=== PATIENT | male | born 1995 | race Hispanic/Latino ===

== ENCOUNTER 2019-02-20 19:45 | Emergency (ER) | payer OTHER ==
[~2019-02-20] VITALS: Ht 167.6 cm; Wt 95.3 kg
--- OUTSIDE RECORDS SUMMARY | 2019-02-20 19:49 | XMS REPORT | Clinical Summary ---
Author Author [place] [place] [facility] Address Unknown Phone Unavailable Care Team Providers Care Delicatessen Department Manager Name Role Phone Nery Lawler MD PCP Allergies Comments Active Allergy Reactions Severity Noted Date Brompheniramine-Pseudoeph Rash Low 05/07/2016 -Dm Medications No known medications Active Problems Problem Noted Date Testicular cancer 05/07/2016 Encounters Care Team Description Date Type Specialty Lyubov Gunter MA 09/20/2018 Telephone Urology Elizabeth Vincent MD Malignant neoplasm of testis, unspecified laterality, unspecified whether descended or undescended (HCC) (Primary Dx) 09/18/2018 Office Visit Urology Elizabeth Vincent MD History of primary testicular cancer 09/15/2018 Hospital Radiology Encounter Elizabeth Vincent MD History of primary testicular cancer 09/15/2018 Hospital Radiology Encounter Elizabeth Vincent MD History of primary testicular cancer (Primary Dx) 04/17/2018 Office Visit Urology after 02/19/2018 Family History Medical History Relation Name Comments No Known Problems Father No Known Problems Mother No Known Problems Sister Relation Name Status Comments Father Alive Mother Alive Sister Alive Social History Date Tobacco Use Types Packs/Day Years Used Never Smoker Smokeless Tobacco: Never Used Alcohol Use Drinks/Week oz/Week Comments No Sex Assigned at Date Recorded Not on file Industry Job Start Date Occupation Not on file Not on file Not on file Travel End Travel History Travel Start No recent travel history available. Last Filed Vital Signs Time Taken Vital Sign Reading - Blood Pressure - - Pulse - - Temperature - - Respiratory Rate - - Oxygen Saturation - - Inhaled Oxygen - Concentration 09/15/2018 3:15 PM [employer] Weight 93 kg (205 lb) 09/15/2018 3:15 PM [employer] Height 167.6 cm (5' 6") 09/15/2018 3:15 PM [employer] Body Mass Index 33.09 Plan of Treatment Care Team Description Date Type Specialty Elizabeth Vincent MD [address] [facility] [address] [place] [address] 09/20/2019 Office Visit Urology Health Maintenance Due Date Last Done Comments INFLUENZA VACCINE 05/03/2019 Procedures Comments Procedure Name Priority Date/Time Associated Diagnosis HCG QUANTITATIVE, SERUM Routine 09/18/2018 Malignant neoplasm of 3:36 PM [employer] testis, unspecified laterality, unspecified whether descended or undescended (HCC) ALPHA FETOPROTEIN Routine 09/18/2018 Malignant neoplasm of 3:36 PM [employer] testis, unspecified laterality, unspecified whether descended or undescended (HCC) LDH Routine 09/18/2018 Malignant neoplasm of 3:36 PM [employer] testis, unspecified laterality, unspecified whether descended or undescended (HCC) CT ABDOMEN PELVIS W Routine 09/15/2018 History of primary CONTRAST 4:26 PM [employer] testicular cancer XR CHEST 2 VW Routine 09/15/2018 History of primary 2:01 PM [employer] testicular cancer HCG QUANTITATIVE, SERUM Routine 04/17/2018 History of primary 10:12 AM CDT testicular cancer ALPHA FETOPROTEIN Routine 04/17/2018 History of primary 10:12 AM CDT testicular cancer LDH Routine 04/17/2018 History of primary 9:57 AM CDT testicular cancer POC URINALYSIS DIPSTICK Routine 04/17/2018 History of primary 8:31 AM CDT testicular cancer after 02/19/2018 Results * Alpha fetoprotein (09/18/2018 3:36 PM FRAMING MECH[employer]IC) Only the most recent of 2 results within the time period is included. Alpha 4.2Comment: Iron ECLIA 0.0 - 8.3 ng/mL [facility] fetoprotein methodology Specimen Blood Narrative Performed At Performed at:[address] [place] [address] [facility] [address] [place], [id number] Thread Grinder Tool: Saul Padilla MD, Phone:[phone] Performing Organization Address [facility] Phone Number [facility] * hCG quantitative, serum (09/18/2018 3:36 PM FRAMING MECHANIC) Only the most recent of 2 results within the time period is included. hCG <1Comment: Iron ECLIA 0 - 3 mIU/mL [facility] quantitative, methodology serum Specimen Blood Narrative Performed At Performed at:01 - [facility] [address] [place], [place] [id number] [employer] Grinder Tool: Saul Padilla MD, Phone:[phone] Performing Organization Address [facility] Phone Number [facility] * LDH (09/18/2018 3:36 PM FRAMING MECHANIC) Only the most recent of 2 results within the time period is included. LDH 205 121 - 224 IU/L [facility] Specimen Blood Narrative Performed At Performed at:01 - [facility] [place] [facility] [address] [place], [place] [id number] [employer] Grinder Tool: Saul Padilla MD, Phone:[phone] Performing Organization Address [facility] Phone Number [facility] * CT Abdomen Pelvis W Contrast (09/15/2018 4:26 PM FRAMING MECHANIC) Specimen Narrative Performed At EXAMINATION:CT ABDOMEN PELVIS W CONTRAST [facility] CLINICAL HISTORY:Z85.47 Personal history of malignant neoplasm of testis, history of testicular cancer TECHNIQUE: Multiple axial CT images of the abdomen and pelvis are obtained with the use of intravenous contrast. Coronal and sagittal 3-D reconstructions are obtained. CT scans are performed using radiation dose reduction techniques.Technical factors are evaluated and adjusted to ensure appropriate moderation of exposure.Automated dose management technology is applied to adjust radiation exposure while achieving a diagnostic quality image. COMPARISON:October 2017 FINDINGS: Visualized lower lung zones are clear. The gallbladder does not have any wall thickening. There is no pericholecystic fluid. The CT appearance of the liver, spleen, adrenal glands and pancreas is unremarkable. The abdominal aorta has no aneurysmal dilatation. There is no retroperitoneal adenopathy. The kidneys do not have any solid renal mass or hydronephrosis. CT Pelvis: There is no evidence of any pneumoperitoneum. There is no retroperitoneal adenopathy identified. There are nonspecific fat filled nodes seen within the inguinal region. The largest node measures 1.6 cm. The stomach does not demonstrate any wall thickening. There is no bowel obstruction nor any dilated loops of bowel. The appendix is unremarkable. The colon has no focal inflammatory change. Small bowel is not dilated. The bladder is unremarkable. There is no evidence of any inguinal hernia. IMPRESSION: 1. Comparison is made to a prior study from October 2017. 2. There is no evidence of any metastatic disease. 3. There is no retroperitoneal adenopathy present. 4. No significant interval change since the prior study. [facility]-[id number] Procedure Note Interface, Radiology Results Incoming - 09/15/2018 4:43 PM [employer]AMING MECHANIC EXAMINATION: CT ABDOMEN PELVIS W CONTRAST CLINICAL HISTORY: Z85.47 Personal history of malignant neoplasm of testis, history of testicular cancer TECHNIQUE: Multiple axial CT images of the abdomen and pelvis are obtained with the use of intravenous contrast. Coronal and sagittal 3-D reconstructions are obtained. CT scans are performed using radiation dose reduction techniques. Technical factors are evaluated and adjusted to ensure appropriate moderation of exposure. Automated dose management technology is applied to adjust radiation exposure while achieving a diagnostic quality image. COMPARISON: October 2017 FINDINGS: Visualized lower lung zones are clear. The gallbladder does not have any wall thickening. There is no pericholecystic fluid. The CT appearance of the liver, spleen, adrenal glands and pancreas is unremarkable. The abdominal aorta has no aneurysmal dilatation. There is no retroperitoneal adenopathy. The kidneys do not have any solid renal mass or hydronephrosis. CT Pelvis: There is no evidence of any pneumoperitoneum. There is no retroperitoneal adenopathy identified. There are nonspecific fat filled nodes seen within the inguinal region. The largest node measures 1.6 cm. The stomach does not demonstrate any wall thickening. There is no bowel obstruction nor any dilated loops of bowel. The appendix is unremarkable. The colon has no focal inflammatory change. Small bowel is not dilated. The bladder is unremarkable. There is no evidence of any inguinal hernia. IMPRESSION: 1. Comparison is made to a prior study from October 2017. 2. There is no evidence of any metastatic disease. 3. There is no retroperitoneal adenopathy present. 4. No significant interval change since the prior study. [facility]-[id number] Performing Organization Address City/State/Zipcode Phone Number [facility] [address] [place] [address] * XR Chest 2 Vw (09/15/2018 2:01 PM FRAMING MECHANIC) Specimen Narrative Performed At EXAMINATION:XR CHEST 2 VW [facility] CLINICAL HISTORY:Z85.47 Personal history of malignant neoplasm of testis, history of testicular cancer XR CHEST 2 VWimages are submitted COMPARISON:10/10/2017 FINDINGS: The cardiac silhouette is normal in size. The pulmonary vasculature is within normal limits. The lung zones are clear. There is no pleural effusion or pneumothorax. There are no lung nodules identified. IMPRESSION: 1. There is no acute cardiopulmonary disease. 2. There are no lung nodules identified. [facility]-[id number] Procedure Note Hm Interface, Radiology Results Incoming - 09/15/2018 2:13 PM FRAMING MECHANIC EXAMINATION: XR CHEST 2 VW CLINICAL HISTORY: Z85.47 Personal history of malignant neoplasm of testis, history of testicular cancer XR CHEST 2 VW images are submitted COMPARISON: 10/10/2017 FINDINGS: The cardiac silhouette is normal in size. The pulmonary vasculature is within normal limits. The lung zones are clear. There is no pleural effusion or pneumothorax. There are no lung nodules identified. IMPRESSION: 1. There is no acute cardiopulmonary disease. 2. There are no lung nodules identified. [facility]-[id number] Performing Organization Address City/State/Zipcode Phone Number [facility] [address] [place] [address] * POC urinalysis dipstick (04/17/2018 8:31 AM CDT) Color urine, Yellow POC Clarity urine, Clear POC Glucose urine, Negative Negative POC Bilirubin Negative Negative urine, POC Ketones urine, Negative Negative POC Specific 1.025 1.005 - 1.030 gravity urine, POC Blood urine, Negative Negative POC pH urine, POC 5.5 5.0, 5.5, 6.0, 6.5, 7.0, 7.5, 8.0, 8.5 Protein urine, Negative Negative POC Urobilinogen <2.0 <2.0 urine, POC Nitrite urine, Negative Negative POC Leukocyte Negative Negative esterase urine, POC Specimen Urine after 02/19/2018 Insurance Type Payer Benefit Subscriber ID Effective Phone Address Plan / Dates Group HMO/PPO [facility] xxxxxxxxx [id number] THCARE resent CHOICE/CHO ICE + Advance Directives Patient has advance care planning documents on file. For more information, dandre spivey contact: Junaid Jesus [address] [place] [address]
--- OUTSIDE RECORDS SUMMARY | 2019-02-20 19:49 | XMS REPORT ---
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 Allergies, Adverse Reactions, Alerts Allergy Name Allergy Type Status Severity Reaction(s) Onset Date Inactive Date Treating Clinician Comments brompheniramine DA Active SV 2018-07-18 00:00:00 brompheniramine DA Active U 2015-11-23 00:00:00 Medications This patient has no known medications. Results Test Description Test Time Test Comments Text Results Atomic Results Result Comments URINALYSIS COMPLETE 2019-02-06 10:30:00 UA COLOR (test code=COLU) YELLOW YELLOW UA APPEARANCE (test code=APPU) CLEAR CLEAR UA GLUCOSE DIPSTICK (test code=DGLUU) norm mg/dL NEGATIVE UA BILIRUBIN DIPSTICK (test code=BILU) NEGATIVE mg/dL NEGATIVE UA KETONE DIPSTICK (test code=KETU) neg mg/dL NEGATIVE UA SPECIFIC GRAVITY (test code=SGU) 1.020 1.001-1.035 UA BLOOD DIPSTICK (test code=SHARON) neg Huy/uL NEGATIVE UA PH DIPSTICK (test code=CASS) 6.0 5.0-8.0 UA PROTEIN DIPSTICK (test code=PROU) 15 (TRACE) mg/dL Neg-15 UA UROBILINIOGEN DIPSTICK (test code=URO) norm mg/dL 0.0-0.2 UA NITRITE DIPSTICK (test code=MISHA) NEGATIVE NEGATIVE UA LEUKOCYTE ESTERASE DIPSTICK (test code=LEUU) NEGATIVE uL NEGATIVE UA WBC (test code=WBCU) 0-5 per HPF 0-5 UA RBC (test code=RBCU) 0-2 per HPF 0-5 UA EPITHELIAL CELLS (test code=EPIU) Few (2-5/hpf) per HPF Few UA BACTERIA (test code=BACU) FEW per HPF NONE URINALYSIS [id number] 10:18:00* Test Item Value Reference Range Comments UA COLOR (test code=COLU) YELLOW YELLOW UA APPEARANCE (test code=APPU) CLEAR CLEAR UA GLUCOSE DIPSTICK (test code=DGLUU) norm mg/dL NEGATIVE UA BILIRUBIN DIPSTICK (test code=BILU) NEGATIVE mg/dL NEGATIVE UA KETONE DIPSTICK (test code=KETU) neg mg/dL NEGATIVE UA SPECIFIC GRAVITY (test code=SGU) 1.020 1.001-1.035 UA BLOOD DIPSTICK (test code=SHARON) neg Huy/uL NEGATIVE UA PH DIPSTICK (test code=CASS) 6.0 5.0-8.0 UA PROTEIN DIPSTICK (test code=PROU) 15 (TRACE) mg/dL Neg-15 UA UROBILINIOGEN DIPSTICK (test code=URO) norm mg/dL 0.0-0.2 UA NITRITE DIPSTICK (test code=MISHA) NEGATIVE NEGATIVE UA LEUKOCYTE ESTERASE DIPSTICK (test code=LEUU) NEGATIVE uL NEGATIVE UA WBC (test code=WBCU) 0-5 per HPF 0-5 UA RBC (test code=RBCU) 0-2 per HPF 0-5 UA EPITHELIAL CELLS (test code=EPIU) Few (2-5/hpf) per HPF Few UA BACTERIA (test code=BACU) FEW per HPF NONE URINALYSIS W/O [id number] 10:18:00* Test Item Value Reference Range Comments UA LEUKOCYTE ESTERASE W REFLEX (test code=LEUUR) NEGATIVE - XR CHEST 1 [id number] 10:10:00 Name: EZIO ALCALA [facility] : 1995 Age/S:24 /M [address] [facility] Unit#:[id number] Loc: [place], [place] [address] Phys: Jordan Nelson MD Dis Date: PHONE #: [phone] Status: REG ER FAX #: [phone] Exam Date: 02/06/2019 Reason: epigastric pain EXAMS: CPT CODE: [id number] XR CHEST 1 V 12441 HISTORY: Epigastric pain. COMPARISON: July 11, 2014. No acute infiltrates, effusion or congestion is noted. The cardiac and mediastinal silhouette are within normal limits. IMPRESSION: No acute infiltrates, effusion or congestion. at 1010 Reported and signed by: Willy Lara M.D. CC: Jordan Nelson MD Technologist: Cailin Traylor Trnscrpt Data: 02/06/2019 (1010) [email or web address] Orig Print D/T: S: 02/06/2019 (1014) PAGE 1 Signed Report URINALYSIS [id number] 10:08:00* Test Item Value Reference Range Comments UA COLOR (test code=COLU) YELLOW YELLOW UA APPEARANCE (test code=APPU) CLEAR CLEAR UA GLUCOSE DIPSTICK (test code=DGLUU) norm mg/dL NEGATIVE UA BILIRUBIN DIPSTICK (test code=BILU) NEGATIVE mg/dL NEGATIVE UA KETONE DIPSTICK (test code=KETU) neg mg/dL NEGATIVE UA SPECIFIC GRAVITY (test code=SGU) 1.020 1.001-1.035 UA BLOOD DIPSTICK (test code=SHARON) neg Huy/uL NEGATIVE UA PH DIPSTICK (test code=CASS) 6.0 5.0-8.0 UA PROTEIN DIPSTICK (test code=PROU) 15 (TRACE) mg/dL Neg-15 UA UROBILINIOGEN DIPSTICK (test code=URO) norm mg/dL 0.0-0.2 UA NITRITE DIPSTICK (test code=MISHA) NEGATIVE NEGATIVE UA LEUKOCYTE ESTERASE DIPSTICK (test code=LEUU) uL NEGATIVE UA WBC (test code=WBCU) per HPF 0-5 UA RBC (test code=RBCU) per HPF 0-5 UA EPITHELIAL CELLS (test code=EPIU) per HPF Few UA BACTERIA (test code=BACU) per HPF NONE URINALYSIS W/O [id number] 10:08:00* Test Item Value Reference Range Comments UA LEUKOCYTE ESTERASE W REFLEX (test code=LEUUR) NEGATIVE URINALYSIS [id number] 10:08:00* Test Item Value Reference Range Comments UA COLOR (test code=COLU) YELLOW YELLOW UA APPEARANCE (test code=APPU) CLEAR CLEAR UA GLUCOSE DIPSTICK (test code=DGLUU) norm mg/dL NEGATIVE UA BILIRUBIN DIPSTICK (test code=BILU) NEGATIVE mg/dL NEGATIVE UA KETONE DIPSTICK (test code=KETU) neg mg/dL NEGATIVE UA SPECIFIC GRAVITY (test code=SGU) 1.020 1.001-1.035 UA BLOOD DIPSTICK (test code=SHARON) neg Huy/uL NEGATIVE UA PH DIPSTICK (test code=CASS) 6.0 5.0-8.0 UA PROTEIN DIPSTICK (test code=PROU) 15 (TRACE) mg/dL Neg-15 UA UROBILINIOGEN DIPSTICK (test code=URO) norm mg/dL 0.0-0.2 UA NITRITE DIPSTICK (test code=MISHA) NEGATIVE NEGATIVE UA LEUKOCYTE ESTERASE DIPSTICK (test code=LEUU) uL NEGATIVE UA WBC (test code=WBCU) per HPF 0-5 UA RBC (test code=RBCU) per HPF 0-5 UA EPITHELIAL CELLS (test code=EPIU) per HPF Few UA BACTERIA (test code=BACU) per HPF NONE URINALYSIS W/O [id number] 10:08:00* Test Item Value Reference Range Comments UA LEUKOCYTE ESTERASE W REFLEX (test code=LEUUR) NEGATIVE COMPREHENSIVE METABOLIC [id number] 10:02:00* Test Item Value Reference Range Comments SODIUM (test code=NA) 138 mmol/L 135-148 POTASSIUM (test code=K) 3.7 mmol/L 3.5-5.1 CHLORIDE (test code=CL) 104 mmol/L 101-109 CARBON DIOXIDE (test code=CO2) 22.8 mmol/L 21-32 ANION GAP (test code=GAP) 15 mmol/L 10-20 GLUCOSE (test code=GLU) 109 mg/dL 74-106 BLOOD UREA NITROGEN (test code=BUN) 13 mg/dL 3-21 CREATININE (test code=CREAT) 1.01 mg/dL 0.55-1.3 BUN/CREATININE RATIO (test code=BUN/CREA) 12.9 10-20 TOTAL PROTEIN (test code=PROT) 7.8 g/dL 6.5-8.4 ALBUMIN (test code=ALB) 4.0 g/dL 3.4-4.8 GLOBULIN (test code=GLOB) 3.8 G/DL 1-10 ALBUMIN/GLOBULIN RATIO (test code=A/G) 1.1 RATIO 0.75-1.50 CALCIUM (test code=CA) 8.6 mg/dL 8.4-10.2 BILIRUBIN TOTAL (test code=BILT) 0.70 mg/dL 0.0-1.0 SGOT/AST (test code=AST) 25 U/L 6-32 SGPT/ALT (test code=ALT) 52 U/L 12-78 Note: Change in REFERENCE RANGE due to new reagent method. ALKALINE PHOSPHATASE TOTAL (test code=ALKP) 74 U/L 38-126 [id number] 10:02:00* Test Item Value Reference Range Comments LIPASE (test code=LIP) 121 U/L 128-270 [id number] 10:02:00* Test Item Value Reference Range Comments MAGNESIUM (test code=MAG) 2.1 mg/dL 1.6-2.3 [id number] 10:02:00* Test Item Value Reference Range Comments TROPONIN-I (test code=TROPI) <0.015 ng/mL 0.00-0.056 COMPREHENSIVE METABOLIC [id number] 09:52:00* Test Item Value Reference Range Comments SODIUM (test code=NA) 138 mmol/L 135-148 POTASSIUM (test code=K) 3.7 mmol/L 3.5-5.1 CHLORIDE (test code=CL) 104 mmol/L 101-109 CARBON DIOXIDE (test code=CO2) 22.8 mmol/L 21-32 ANION GAP (test code=GAP) 15 mmol/L 10-20 GLUCOSE (test code=GLU) 109 mg/dL 74-106 BLOOD UREA NITROGEN (test code=BUN) 13 mg/dL 3-21 CREATININE (test code=CREAT) 1.01 mg/dL 0.55-1.3 BUN/CREATININE RATIO (test code=BUN/CREA) 12.9 10-20 TOTAL PROTEIN (test code=PROT) gram/dL 6.4-8.2 ALBUMIN (test code=ALB) g/dL 3.4-5.0 GLOBULIN (test code=GLOB) g/dL 2.7-4.2 ALBUMIN/GLOBULIN RATIO (test code=A/G) 0.75-1.50 CALCIUM (test code=CA) 8.6 mg/dL 8.4-10.2 BILIRUBIN TOTAL (test code=BILT) mg/dL 0.2-1.2 SGOT/AST (test code=AST) IUnit/L 15-37 SGPT/ALT (test code=ALT) U/L 10-69 ALKALINE PHOSPHATASE TOTAL (test code=ALKP) IUnit/L 45-117 [id number] 09:52:00* Test Item Value Reference Range Comments LIPASE (test code=LIP) Unit/L 144-286 [id number] 09:52:00* Test Item Value Reference Range Comments MAGNESIUM (test code=MAG) mg/dL 1.8-2.4 [id number] 09:52:00* Test Item Value Reference Range Comments TROPONIN-I (test code=TROPI) ng/mL 0-0.045 CBC W/AUTO [id number] 09:23:00* Test Item Value Reference Range Comments WHITE BLOOD CELL (test code=WBC) 7.7 K/mm3 4.5-12.5 RED BLOOD CELL (test code=RBC) 6.05 mill/mm3 4.0-5.8 HEMOGLOBIN (test code=HGB) 17.8 gram/dL 13.0-17.5 HEMATOCRIT (test code=HCT) 51.3 % 42.0-52.0 MEAN CELL VOLUME (test code=MCV) 84.8 fL 80-98 MEAN CELL HGB (test code=MCH) 29.4 picogram 27.0-33.0 MEAN CELL HGB CONCETRATION (test code=MCHC) 34.7 gram/dL 33.0-36.0 RED CELL DISTRIBUTION WIDTH (test code=RDW) 12.8 % 11.6-16.2 RED CELL DISTRIBUTION WIDTH SD (test code=RDW-SD) 39.3 fL 37.0-51.0 PLATELET COUNT (test code=PLT) 255 K/mm3 150-450 MEAN PLATELET VOLUME (test code=MPV) 9.4 fL 6.7-11.0 NEUTROPHIL % (test code=NT%) 64.0 % 39.0-69.0 LYMPHOCYTE % (test code=LY%) 22.6 % 25.0-55.0 MONOCYTE % (test code=MO%) 6.8 % 0.0-10.0 EOSINOPHIL % (test code=EO%) 5.8 % 0.0-5.0 BASOPHIL % (test code=BA%) 0.5 % 0.0-1.0 NEUTROPHIL # (test code=NT#) 4.93 K/mm3 1.8-7.7 LYMPHOCYTE # (test code=LY#) 1.74 K/mm3 1.0-5.0 MONOCYTE # (test code=MO#) 0.52 K/mm3 0-0.8 EOSINOPHIL # (test code=EO#) 0.45 K/mm3 0.0-0.5 BASOPHIL # (test code=BA#) 0.04 K/mm3 0.0-0.2 MANUAL DIFF REQUIRED (test code=MDIFF) NO COMPREHENSIVE METABOLIC [id number] 00:08:00* Test Item Value Reference Range Comments SODIUM (test code=NA) 138 mEq/L 134-147 POTASSIUM (test code=K) 3.5 mEq/L 3.4-5.0 CHLORIDE (test code=CL) 107 mEq/L 100-108 CARBON DIOXIDE (test code=CO2) 27 mEq/L 21-33 ANION GAP (test code=GAP) 8 0-20 GLUCOSE (test code=GLU) 103 mg/dL 70-110 BLOOD UREA NITROGEN (test code=BUN) 12 mg/dL 7-18 GLOMERULAR FILTRATION RATE (test code=GFR) 91.0 110-120 Units of measure=ml/min/1.73 m2 CREATININE (test code=CREAT) 1.0 mg/dL 0.6-1.3 TOTAL PROTEIN (test code=PROT) 7.8 g/dL 6.4-8.2 ALBUMIN (test code=ALB) 4.20 g/dL 3.4-5.0 CALCIUM (test code=CA) 8.5 mg/dL 8.0-10.5 BILIRUBIN TOTAL (test code=BILT) 0.60 mg/dL 0.0-1.0 SGOT/AST (test code=AST) 23 IUnit/L 15-37 SGPT/ALT (test code=ALT) 55 IUnit/L 15-65 ALKALINE PHOSPHATASE TOTAL (test code=ALKP) 72 IUnit/L 20-125 [id number] 00:08:00* Test Item Value Reference Range Comments LIPASE (test code=LIP) 124 IUnit/L 73-393 COMPREHENSIVE METABOLIC [id number] 00:05:00* Test Item Value Reference Range Comments SODIUM (test code=NA) 138 mEq/L 134-147 POTASSIUM (test code=K) 3.5 mEq/L 3.4-5.0 CHLORIDE (test code=CL) 107 mEq/L 100-108 CARBON DIOXIDE (test code=CO2) 27 mEq/L 21-33 ANION GAP (test code=GAP) 8 0-20 GLUCOSE (test code=GLU) 103 mg/dL 70-110 BLOOD UREA NITROGEN (test code=BUN) 12 mg/dL 7-18 GLOMERULAR FILTRATION RATE (test code=GFR) 91.0 110-120 Units of measure=ml/min/1.73 m2 CREATININE (test code=CREAT) 1.0 mg/dL 0.6-1.3 TOTAL PROTEIN (test code=PROT) g/dL 6.4-8.2 ALBUMIN (test code=ALB) 4.20 g/dL 3.4-5.0 CALCIUM (test code=CA) 8.5 mg/dL 8.0-10.5 BILIRUBIN TOTAL (test code=BILT) mg/dL 0.0-1.0 SGOT/AST (test code=AST) 23 IUnit/L 15-37 SGPT/ALT (test code=ALT) 55 IUnit/L 15-65 ALKALINE PHOSPHATASE TOTAL (test code=ALKP) IUnit/L 20-125 [id number] 00:05:00* Test Item Value Reference Range Comments LIPASE (test code=LIP) 124 IUnit/L 73-393 URINALYSIS [id number] 23:47:00* Test Item Value Reference Range Comments UA COLOR (test code=COLU) YELLOW YEL/STRAW UA APPEARANCE (test code=APPU) CLEAR CLEAR UA GLUCOSE DIPSTICK (test code=DGLUU) NEGATIVE NEGATIVE UA BILIRUBIN DIPSTICK (test code=BILU) NEGATIVE NEGATIVE UA KETONE DIPSTICK (test code=KETU) NEGATIVE NEGATIVE UA SPECIFIC GRAVITY (test code=SGU) 1.019 1.005-1.030 UA BLOOD DIPSTICK (test code=SHARON) NEGATIVE NEGATIVE UA PH DIPSTICK (test code=CASS) 8.0 5.0-7.0 UA PROTEIN DIPSTICK (test code=PROU) NEGATIVE NEGATIVE UA UROBILINIOGEN DIPSTICK (test code=URO) 0.2 mg/dL 0.2-1.0 UA NITRITE DIPSTICK (test code=MISHA) NEGATIVE NEGATIVE UA LEUKOCYTE ESTERASE DIPSTICK (test code=LEUU) NEGATIVE NEGATIVE UA WBC (test code=WBCU) 0-3 WBC/HPF 0-3 UA RBC (test code=RBCU) 0-3 RBC/HPF 0-3 UA BACTERIA (test code=BACU) NONE SEEN /HPF NONE SEEN UA SQUAMOUS CELLS (test code=SQU) NONE SEEN /HPF NONE SEEN UA MUCUS (test code=MUCU) TRACE /LPF NONE SEEN CBC W/AUTO [id number] 23:33:00* Test Item Value Reference Range Comments WHITE BLOOD CELL (test code=WBC) 9.78 x10 3/uL 4.5-11.0 RED BLOOD CELL (test code=RBC) 5.59 x10 6/uL 4.00-5.60 HEMOGLOBIN (test code=HGB) 16.6 g/dL 12.5-16.9 HEMATOCRIT (test code=HCT) 48.5 % 37.5-50.7 MEAN CELL VOLUME (test code=MCV) 86.8 fL 81.0-99.0 MEAN CELL HGB (test code=MCH) 29.7 pg 27.0-33.0 MEAN CELL HGB CONCETRATION (test code=MCHC) 34.2 g/dL 33.0-37.0 RED CELL DISTRIBUTION WIDTH CV (test code=RDW) 12.2 % 11.5-14.5 RED CELL DISTRIBUTION WIDTH SD (test code=RDW-SD) 39.0 fL 37.0-54.0 PLATELET COUNT (test code=PLT) 268 x10 3/uL 150-400 MEAN PLATELET VOLUME (test code=MPV) 9.4 fL 7.0-9.0 NEUTROPHIL % (test code=NT%) 70.0 % 56.0-77.0 IMMATURE GRANULOCYTE % (test code=IG%) 0.3 % 0.0-2.0 LYMPHOCYTE % (test code=LY%) 18.4 % 14.0-32.0 MONOCYTE % (test code=MO%) 7.5 % 4.8-9.0 EOSINOPHIL % (test code=EO%) 3.4 % 0.3-3.7 BASOPHIL % (test code=BA%) 0.4 % 0.0-2.0 NUCLEATED RBC % (test code=NRBC%) 0.0 % 0-0 NEUTROPHIL # (test code=NT#) 6.85 x10 3/uL 2.0-7.6 IMMATURE GRANULOCYTE # (test code=IG#) 0.03 x10 3/uL 0.00-0.03 LYMPHOCYTE # (test code=LY#) 1.80 x10 3/uL 1.0-3.8 MONOCYTE # (test code=MO#) 0.73 x10 3/uL 0.1-0.8 EOSINOPHIL # (test code=EO#) 0.33 x10 3/uL 0.0-0.2 BASOPHIL # (test code=BA#) 0.04 x10 3/uL 0.0-0.2 NUCLEATED RBC # (test code=NRBC#) 0.00 x10 3/uL 0.0-0.1 MANUAL DIFF REQUIRED (test code=MDIFF) NO
[2019-02-20] MEDS ORDERED: SODIUM CHLORIDE 0.9% 1000ML 1,000 ML IV STA (20:13)
[2019-02-20] MEDS ORDERED: KETOROLAC TROMETHAMINE 30 MG/ML VIAL IV NR ×2 (20:15→22:30)
[2019-02-20] MEDS ORDERED: FAMOTIDINE 20 MG/2 ML VIAL IV NR ×2 (20:15→22:30)
[2019-02-20 20:30] LABS: BASOPHILS % 0.4 % (0.0-1.0); EOSINOPHILS # (AUTO) 0.1 (0.0-0.4); EOSINOPHILS % 0.8 % (0.0-6.0); HEMATOCRIT 45.4 % (38.2-49.6); HEMOGLOBIN 16.1 g/dL (14.0-18.0); LYMPHOCYTES # (AUTO) 1.5 (1.0-3.2); LYMPHOCYTES % 14.4 % (18.0-39.1); MEAN CORPUSCULAR HEMOGLOBIN 29.5 pg (28-32); MEAN CORPUSCULAR HGB CONC 35.5 g/dL (31-35); MEAN CORPUSCULAR VOLUME 83.2 fL (81-99); MONOCYTES # (AUTO) 0.6 (0.2-0.8); MONOCYTES % 5.8 % (4.4-11.3); NEUTROPHILS # (AUTO) 8.3 (2.1-6.9); NEUTROPHILS % 78.2 % (38.7-80.0); PLATELET COUNT 259 x10e3/uL (140-360); RED BLOOD COUNT 5.46 x10e6/uL (4.3-5.7); RED CELL DISTRIBUTION WIDTH 12.6 % (11.7-14.4)
[2019-02-20] MEDS ORDERED: ONDANSETRON HCL INJ 2MG/ML 2ML 2 MG/ML VIAL IV NR ×2 (20:30→22:30)
[2019-02-20 20:35] LABS: BILIRUBIN,URINE NEGATIVE (NEGATIVE); CLARITY,URINE CLEAR (CLEAR); COLOR,URINE COLORLESS (YELLOW); KETONES,URINE NEGATIVE (NEGATIVE); LEUKOCYTE ESTERASE ,URINE NEGATIVE (NEGATIVE); NITRITE,URINE NEGATIVE (NEGATIVE); PROTEIN,URINE DIPSTICK NEGATIVE (NEGATIVE); URINE UROBILINOGEN 0.2 mg/dL (0.2 - 1)
[2019-02-20 20:52] LABS: ALANINE AMINOTRANSFERASE 39 IU/L (0-55); ALBUMIN 4.6 g/dL (3.5-5.0); ALBUMIN/GLOBULIN RATIO 1.4 (0.8-2.0); ALKALINE PHOSPHATASE 62 IU/L (40-150); AMYLASE 36 U/L (25-125); ANION GAP 14.3 mmol/L (8-16); BLOOD UREA NITROGEN 12 mg/dL (7-26); BUN/CREATININE RATIO 11 (6-25); CALCIUM 9.7 mg/dL (8.4-10.2); CARBON DIOXIDE 25 mmol/L (22-29); CHLORIDE 102 mmol/L (98-107); EST GLOMERULAR FILTRATION RATE > 60 ML/MIN (60-); GLUCOSE 95 mg/dL (74-118); LIPASE 18 U/L (8-78); POTASSIUM 3.3 mmol/L (3.5-5.1); SODIUM 138 mmol/L (136-145)
--- NOTE | 2019-02-20 21:59 | Diagnostic Imaging Report ---
EXAMINATION: CT of the abdomen and pelvis with contrast. TECHNIQUE: Helical CT images of the abdomen and pelvis were performed from the lung bases to the lesser trochanters after the intravenous administration of 100 cc of Omnipaque 300 and the oral administration of none. Coronal and sagittal reformatted images were obtained.Dose modulation, iterative reconstruction, and/or weight based adjustment of the mA/kV was utilized to reduce the radiation dose to as low as reasonably achievable. COMPARISON: None. CLINICAL HISTORY:flank pain DISCUSSION: ABDOMEN/PELVIS: LOWER THORAX:Unremarkable. HEPATOBILIARY: No focal hepatic lesions. No intra-or extrahepatic biliary ductal dilation. The gallbladder is normal. SPLEEN: No splenomegaly. PANCREAS: No focal masses or ductal dilatation. ADRENALS: No adrenal nodules. KIDNEYS/URETERS: No hydronephrosis, stones, or solid mass lesions. PELVIC ORGANS/BLADDER: The bladder is normal. Testicular implant on the right. PERITONEUM/RETROPERITONEUM: No free air or fluid. LYMPH NODES: No intra-abdominal, retroperitoneal, pelvic or inguinal lymphadenopathy. VESSELS: The celiac trunk,superior and inferior mesenteric and bilateral renal arteries are patent The portal, superior mesenteric and splenic veins are patent. GI TRACT: No distention or wall thickening. Appendix normal. BONES AND SOFT TISSUE: No bony destructive lesions. No soft tissue abnormalities. IMPRESSION: No acute CT finding. Signed by: Dr. Riky Caruso M.D. on 02/20/2019 9:55 PM
[2019-02-20] MEDS ORDERED: SODIUM CHLORIDE 0.9% 50ML 50 ML ONE (23:01)
[2019-02-20] MEDS ORDERED: IOPAMIDOL 370 MG/ML 200 ML INFUS..BTL INJ ONE (23:02)
[2019-02-20 23:12] VITALS: BP 114/79
== END 2019-02-20 23:14 | disposition home or self-care (01) ==
LOC: ER 19:45
DX: R10.13 Epigastric pain (principal); Z85.47 Personal history of malignant neoplasm of testis; Z88.8 Allergy status to other drugs, medicaments and biological substances
CPT/HCPCS: 36415; 74177; 80053; 81001; 82150; 83690; 85025; 99284; J1885; J7030; Q9967